=== PATIENT | male | born 1995 | race Caucasian/White ===

== ENCOUNTER 2022-07-05 13:55 | Emergency (ER) | payer SELFPAY ==
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
[2022-07-05] MEDS ORDERED: SILVER SULFADIAZINE 1% 50 GM TOP ONE (14:48)
[2022-07-05 15:27] VITALS: BP 133/77; TEMP 98.1; O2SAT 100
== END 2022-07-05 14:57 | disposition home or self-care (01) ==
LOC: ER 13:55
DX: T25.211A Burn of second degree of right ankle, initial encounter (principal); X08.8XXA Exposure to other specified smoke, fire and flames, initial encounter; Y93.89 Activity, other specified; Y92.9 Unspecified place or not applicable; F17.210 Nicotine dependence, cigarettes, uncomplicated
CPT/HCPCS: 99284

== ENCOUNTER 2022-10-08 07:10 | Emergency (ER) | payer OTHER, SELFPAY ==
[2022-10-08] MEDS ORDERED: IBUPROFEN 400 MG TAB ONE (09:20)
--- NOTE | 2022-10-08 09:41 | ER ---
Nurse's Notes [facility] Name: Ramesh Valdez Age: 27 yrs Sex: Male : 1995 Arrival Date: 10/08/2022 Time: 07:15 Bed 12 Private MD: Diagnosis: Impacted cerumen, right ear;Acute serous otitis media, right ear Presentation: 10/08 07:21 Chief complaint: Patient states: R ear pain that began 2 days ago. Denies fever. Pt ss reports that it hurts more when putting an ear plug in. Coronavirus screen: Client denies travel out of the [place] in the last 14 days. Ebola Screen: Patient denies exposure to infectious person. Patient denies travel to an Ebola-affected area in the 21 days before illness onset. Initial Sepsis Screen: Does the patient meet any 2 criteria? No. Patient's initial sepsis screen is negative. Does the patient have a suspected source of infection? No. Patient's initial sepsis screen is negative. Risk Assessment: Do you want to hurt yourself or someone else? Patient reports no desire to harm self or others. Onset of symptoms was October 06, 2022. 07:21 Method Of Arrival: Ambulatory ss 07:21 Acuity: BLAIR 5 ss Historical: - Allergies: 07:23 No Known Allergies; ss - Home Meds: 07:23 None [Active]; ss - PMHx: 07:23 None; ss - PSHx: 07:23 None; ss - Immunization history:: Client reports having NOT received the Covid vaccine. - Social history:: Smoking status: Patient reports the use of cigarette tobacco products, smokes one-half pack cigarettes per day. Screenin:26 [facility] ED Fall Risk Assessment (Adult) History of falling in the last 3 months, ss including since admission. Abuse screen: Denies threats or abuse. Denies injuries from another. Nutritional screening: No deficits noted. Tuberculosis screening: Never had TB. Assessment: 07:26 General: Appears in no apparent distress. comfortable, Behavior is calm, cooperative, ss Denies fever, feeling ill, fatigue, chills. Pain: Complains of pain in right ear Pain currently is 3 out of 10 on a pain scale. Quality of pain is described as tender, Is continuous. Neuro: Level of Consciousness is awake, alert, obeys commands, Oriented to person, place, time, situation. Respiratory: Airway is patent Respiratory effort is even, unlabored, Respiratory pattern is regular, symmetrical. Derm: Skin is intact, is healthy with good turgor, Skin is pink, warm \T\ dry. normal. Musculoskeletal: Range of motion: intact in all extremities. 08:30 Reassessment: Irrigated R ear with warm water and hydrogen peroxide. Small amount of ss flecks of wax noted on towel. Pt tolerated well. Awaiting for Dr. Henderson to reassess patient. Vital Signs: 07:21 BP 126 / 79; Pulse 97; Resp 15; Temp 98.2(TE); Pulse Ox 99% on R/A; Weight 99.79 kg; ss Height 6 ft. 0 in. (182.88 cm); Pain 3/10; 07:21 Body Mass Index 29.84 (99.79 kg, 182.88 cm) ED Course: 07:15 Patient arrived in ED. rg4 07:23 Triage completed. 07:23 Salinas Henderson MD is Attending Physician. [facility] 07:23 Arm band placed on right wrist. 07:26 Patient has correct armband on for positive identification. 07:46 Laila Basilio, MADAY is Primary Nurse. 09:37 Sammie Baker MD is Referral Physician. [facility] 09:52 No provider procedures requiring assistance completed. Patient did not have IV access ss during this emergency room visit. Administered Medications: 09:18 Drug: Motrin (ibuprofen) 800 mg Route: PO; 09:47 Follow up: Response: No adverse reaction 09:43 Drug: Augmentin (Amoxicillin-Clavulanate) 875 mg Route: PO; 16:20 Follow up: Response: Medication administered at discharge. 09:47 Drug: Rocephin (cefTRIAXone) 1 grams Route: IM; Site: left gluteus; 10:00 Follow up: Response: No adverse reaction; Medication administered at discharge. Medication: 07:26 VIS not applicable for this client. Outcome: 09:40 Discharge ordered by . yecenia 09:52 Discharged to home ambulatory. 09:52 Condition: good 09:52 Discharge instructions given to patient, Instructed on discharge instructions, follow up and referral plans. medication usage, Demonstrated understanding of instructions, follow-up care, medications, Prescriptions given X 3. 10:09 Patient left the ED. ss Signatures: Salinas Henderson MD MD cha Smirch, Shelby, RN RN Xenia Delgado rg4
--- NOTE | 2022-10-08 09:41 | EDPHYS ---
Physician Documentation [facility] Name: Ramesh Valdez Age: 27 yrs Sex: Male : 1995 Arrival Date: 10/08/2022 Time: 07:15 Bed 12 Private MD: Salinas Díaz HPI: 10/08 08:11 This 27 yrs old Male presents to ER via Ambulatory with complaints of Ear yecenia Pain. 08:11 The patient presents with pain, tenderness. The complaints affect the right ear. Onset: yecenia The symptoms/episode began/occurred 2 day(s) ago. Modifying factors: The symptoms are alleviated by nothing, the symptoms are aggravated by nothing. Associated signs and symptoms: The patient has no apparent associated signs or symptoms. The patient has not experienced similar symptoms in the past. Historical: - Allergies: 07:23 No Known Allergies; ss - Home Meds: 07:23 None [Active]; ss - PMHx: 07:23 None; ss - PSHx: 07:23 None; ss - Immunization history:: Client reports having NOT received the Covid vaccine. - Social history:: Smoking status: Patient reports the use of cigarette tobacco products, smokes one-half pack cigarettes per day. ROS: 08:11 Constitutional: Negative for fever, chills, and weight loss, Eyes: Negative for injury, yecenia pain, redness, and discharge, Neck: Negative for injury, pain, and swelling, Cardiovascular: Negative for chest pain, palpitations, and edema, Respiratory: Negative for shortness of breath, cough, wheezing, and pleuritic chest pain, Abdomen/GI: Negative for abdominal pain, nausea, vomiting, diarrhea, and constipation, Back: Negative for injury and pain, : Negative for injury, bleeding, discharge, and swelling, MS/Extremity: Negative for injury and deformity, Skin: Negative for injury, rash, and discoloration, Neuro: Negative for headache, weakness, numbness, tingling, and seizure, Psych: Negative for depression, anxiety, suicide ideation, homicidal ideation, and hallucinations, Allergy/Immunology: Negative for hives, rash, and allergies, Endocrine: Negative for neck swelling, polydipsia, polyuria, polyphagia, and marked weight changes, Hematologic/Lymphatic: Negative for swollen nodes, abnormal bleeding, and unusual bruising. 08:11 ENT: Positive for ear pain. Exam: 08:11 Constitutional: This is a well developed, well nourished patient who is awake, alert, yecenia and in no acute distress. Head/Face: Normocephalic, atraumatic. Eyes: Pupils equal round and reactive to light, extra-ocular motions intact. Lids and lashes normal. Conjunctiva and sclera are non-icteric and not injected. Cornea within normal limits. Periorbital areas with no swelling, redness, or edema. Neck: Trachea midline, no thyromegaly or masses palpated, and no cervical lymphadenopathy. Supple, full range of motion without nuchal rigidity, or vertebral point tenderness. No Meningismus. Chest/axilla: Normal chest wall appearance and motion. Nontender with no deformity. No lesions are appreciated. Cardiovascular: Regular rate and rhythm with a normal S1 and S2. No gallops, murmurs, or rubs. Normal PMI, no JVD. No pulse deficits. Respiratory: Lungs have equal breath sounds bilaterally, clear to auscultation and percussion. No rales, rhonchi or wheezes noted. No increased work of breathing, no retractions or nasal flaring. Abdomen/GI: Soft, non-tender, with normal bowel sounds. No distension or tympany. No guarding or rebound. No evidence of tenderness throughout. Back: No spinal tenderness. No costovertebral tenderness. Full range of motion. Male : Normal genitalia with no discharge or lesions. Skin: Warm, dry with normal turgor. Normal color with no rashes, no lesions, and no evidence of cellulitis. MS/ Extremity: Pulses equal, no cyanosis. Neurovascular intact. Full, normal range of motion. Neuro: Awake and alert, GCS 15, oriented to person, place, time, and situation. Cranial nerves II-XII grossly intact. Motor strength 5/5 in all extremities. Sensory grossly intact. Cerebellar exam normal. Normal gait. Psych: Awake, alert, with orientation to person, place and time. Behavior, mood, and affect are within normal limits. 08:11 ENT: TM's: not visable, because of cerumen. Vital Signs: 07:21 BP 126 / 79; Pulse 97; Resp 15; Temp 98.2(TE); Pulse Ox 99% on R/A; Weight 99.79 kg; ss Height 6 ft. 0 in. (182.88 cm); Pain 3/10; 07:21 Body Mass Index 29.84 (99.79 kg, 182.88 cm) Procedures: 09:42 Performed right irrigation x 3, all wax removed. [facility] MDM: 07:23 Patient medically screened. [facility] 08:11 Differential diagnosis: otitis media, otitis externa, ruptured TM, foreign body, yecenia cerumen impaction, barotrauma . Data reviewed: vital signs, nurses notes. Consideration of Admission/Observation Escalation of care including admission/observation considered. I considered the following discharge prescriptions or medication management in the emergency department Medications were administered in the Emergency Department. See MAR. Care significantly affected by the following chronic conditions: none. 09:43 Test considered but Not performed: Labs: no cbc, comp met. [facility] 10/08 07:59 Order name: Misc. Order: h2o2/water; Complete Time: 08:16 yecenia Administered Medications: 09:18 Drug: Motrin (ibuprofen) 800 mg Route: PO; ss 09:47 Follow up: Response: No adverse reaction 09:43 Drug: Augmentin (Amoxicillin-Clavulanate) 875 mg Route: PO; ss 16:20 Follow up: Response: Medication administered at discharge. 09:47 Drug: Rocephin (cefTRIAXone) 1 grams Route: IM; Site: left gluteus; ss 10:00 Follow up: Response: No adverse reaction; Medication administered at discharge. Disposition Summary: 10/08/22 09:40 Discharge Ordered Location: Home yecenia Problem: new yecenia Symptoms: have improved yecenia Condition: Stable yecenia Diagnosis - Impacted cerumen, right ear yecenia - Acute serous otitis media, right ear yecenia Followup: yecenia - With: Private Physician - When: 2 - 3 days - Reason: Recheck today's complaints, Re-evaluation by your physician Followup: yecenia - With: - When: 2 - 3 days - Reason: Recheck today's complaints, Re-evaluation by your physician Discharge Instructions: - Discharge Summary Sheet yecenia - Earwax Buildup, Adult yecenia - Ear Drops, Adult yecenia - Ear Drops, Adult, [id number] yecenia - Otitis Media, Adult yecenia - Otitis Media, Adult, [id number] yecenia - Ear Irrigation yecenia Forms: - Medication Reconciliation Form yecenia - Thank You Letter yecenia - Antibiotic Education yecenia - Prescription Opioid Use yecenia - Work release form ss Prescriptions: - Tylenol-Codeine #3 300 mg-30 mg Oral - take 2 tablet by ORAL route every 6 hours; 15 tablet; Refills: 0, Product [facility] Selection Permitted - Augmentin 875-125 mg Oral Tablet - take 1 tablet by ORAL route every 12 hours for 10 days; 20 tablet; Refills: 0, [facility] Product Selection Permitted - Ciprodex 0.3-0.1 % Otic Drops, Suspension - instill 4 drops by OTIC route every 12 hours for 7 days , for ears ONLY; 1 yecenia Container; Refills: 0, Product Selection Permitted Signatures: Salinas Henderson MD MD cha Smirch, Shelby RN RN ss
[2022-10-08] MEDS ORDERED: AMOX/K CLAV 875 MG TAB ONE (09:43)
[2022-10-08] MEDS ORDERED: CEFTRIAXONE 1000 MG/VIAL ONE (09:44)
[2022-10-08] MEDS ORDERED: WATER FOR INJ,STERILE 10 ML ONE (09:44)
[2022-10-08 10:15] VITALS: BP 126/79; TEMP 98.2; O2SAT 99
== END 2022-10-08 10:09 | disposition home or self-care (01) ==
LOC: ER 07:10
PROC: 3E1B78Z Irrigation of Ear using Irrigating Substance, Via Natural or Artificial Opening (ICD-10-PCS; principal; 2022-10-08)
DX: H65.01 Acute serous otitis media, right ear (principal); H61.21 Impacted cerumen, right ear; F17.210 Nicotine dependence, cigarettes, uncomplicated
CPT/HCPCS: 96372; 99283

== ENCOUNTER 2022-12-22 20:29 | Emergency (ER) | payer OTHER ==
--- OUTSIDE RECORDS SUMMARY | 2022-12-22 20:31 | XMS REPORT | Continuity of Care Document ---
:1995 Author Organization [facility] t Address [address] [place] [address] [place] [address] Care Team Providers Name Role Phone PCP, PATIENT DOES NOT HAVE A Primary Care Physician BINU Ely Attending Clinician Unavailable Binu Rodgers DO Attending Clinician Payers Payer Name Policy Type Policy Number Effective Date Expiration Date Darius NOEL INDEMNITY [id number] 2020 00:00:00 Problems This patient has no known problems. Allergies, Adverse Reactions, Alerts Allergy Allergy Status Severity Reaction(s) Onset Inactive Treating Comm ents Source Name Type Date Date Clinician NO KNOWN Drug Active Univers ALLERGIE Class it[facility] of [facility] Medical Branch Social History Social Habit Start Date Stop Date Quantity Comments Source Exposure to 2022-11-28 2022-12-08 Not sure [facility] SARS-CoV-2 (event) 00:00:00 20:30:00 Medica l Branch Sex Assigned At [birth year] [facility] 00:00:00 00:00:00 Medical Branch Smoking Status Start Date Stop Date Source Tobacco smoking consumption [facility] Medical unknown Branch Medications Ordered Filled Start Stop Current Ordering Indication Dosage Frequency Signature Comments Components Source Medication Medication Date Date Medication? Clinician (SIG) Name Name naproxen Yes [id number] 550mg Take 1 Un thaddeus sodium 4-13 tablet by ity of (ANAPROX 00:00: mouth in [place] DS) 550 mg 00 the Medical tablet morning Branch and 1 tablet in the evening. Take with meals. Vital Signs Vital Name Observation Time Observation Value Comments Source Diastolic blood 2022-12-09 01:26:00 98 mm[Hg] Unive rsity of pressure [facility] Heart rate 2022-12-09 01:26:00 79 /min [facility] Body temperature 2022-12-09 01:26:00 37 [facility] 2022-12-09 01:26:00 16 /min [facility] Body height 2022-12-09 01:26:[address] [facility] Body weight 2022-12-09 01:26:[address] [facility] BMI 2022-12-09 01:26:00 29.84 kg/m2 [facility] Oxygen saturation in 2022-12-09 01:26:00 100 /min [facility] Arterial blood by [facility] Pulse oximetry Branch Systolic blood 2022-12-09 01:26:00 139 mm[Hg] Univer sity of pressure [facility] Procedures Procedure Date / Time Performed Performing Clinician [facility] e CONSENT/REFUSAL FOR 2022-12-09 01:18:46 Doctor Unassigned, No Un [facility] DIAGNOSIS AND Name [facility] [place] TREATMENT NOTICE OF PRIVACY 2022-12-09 01:18:26 Doctor [facility]assigned, No [facility] Branch Encounters Start End Encounter Admission Attending Care Care Encounter Source Date/Time Date/Time Type Type Clinicians Facility Department ID 2022-12-08 2022-12-08 Emergency X SINGER GASHARLENE ERT [id number] Univers 20:35:00 21:07:[address] [facility] 2022-12-08 2022-12-08 Emergency Singer GASHARLENE [id number] Univers 20:35:00 21:07:00 Binu PETTIT [id number] i ty of [place] [id number] [facility] [id number] [facility] 084 Branch Results This patient has no known results.
[2022-12-22] MEDS ORDERED: IBUPROFEN 400 MG TAB ONE (22:11)
--- NOTE | 2022-12-22 22:49 | RAD REPORT ---
EXAM DESCRIPTION: COLLIN - SARINA - 12/22/2022 10:14 pm CLINICAL HISTORY: PAIN COMPARISON: No comparisons TECHNIQUE: Left hand, 3 views. FINDINGS: No fracture is identified. There is no dislocation or periosteal reaction noted. Joint alignment is maintained. No foreign body or other soft tissue abnormality. IMPRESSION: Negative left hand examination.
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
[2022-12-23 00:57] VITALS: BP 137/84; TEMP 98.9; O2SAT 100
== END 2022-12-22 23:13 | disposition home or self-care (01) ==
LOC: ER 20:29
DX: M79.642 Pain in left hand (principal)

== ENCOUNTER → 2023-11-05 | Emergency (ER) | payer OTHER, SELFPAY ==
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
--- NOTE | 2023-11-05 15:23 | EDPHYS ---
Physician Documentation [facility] Name: Ramesh Valdez Age: 28 yrs Sex: Male : 1995 Arrival Date: 11/05/2023 Time: 15:05 Bed Waiting Private MD: ED Physician Salinas Henderson HPI: 11/04 15:27 This 28 yrs old Male presents to ER via Ambulatory with complaints of Staple Removal. [facility] 15:27 The patient has kelsi on the scalp. Previous treatment: The patient was initially [facility] treated 9 day(s) ago, the care was rendered at another emergency department, [facility], Treatment type: The patient's original treatment included kelsi. Sutures/kelsi progress: The patient has no c/o's. The wound is well-healing with no redness, swelling, discharge, or dehiscence reported. Historical: - Allergies: 15:27 No Known Allergies; as6 - Home Meds: 15:27 None [Active]; as6 - PMHx: 15:27 None; as6 - PSHx: 15:27 None; as6 - Immunization history:: Last tetanus immunization: up to date. - Social history:: Smoking status: Patient reports the use of cigarette tobacco products, smokes one pack cigarettes per day. ROS: 15:27 Constitutional: Negative for fever, chills, and weight loss, Eyes: Negative for injury, jh7 pain, redness, and discharge, Neck: Negative for injury, pain, and swelling, Cardiovascular: Negative for chest pain, palpitations, and edema, Respiratory: Negative for shortness of breath, cough, wheezing, and pleuritic chest pain, Abdomen/GI: Negative for abdominal pain, nausea, vomiting, diarrhea, and constipation, MS/Extremity: Negative for injury and deformity, Neuro: Negative for headache, weakness, numbness, tingling, and seizure, 15:27 Skin: Positive for laceration(s), of the scalp, kelsi in place, 15:27 All other systems are negative, Exam: 15:27 Constitutional: This is a well developed, well nourished patient who is awake, alert, jh7 and in no acute distress. Neck: Trachea midline, no thyromegaly or masses palpated, and no cervical lymphadenopathy. Supple, full range of motion without nuchal rigidity, or vertebral point tenderness. No Meningismus. Cardiovascular: Regular rate and rhythm with a normal S1 and S2. No gallops, murmurs, or rubs. Normal PMI, no JVD. No pulse deficits. Respiratory: Lungs have equal breath sounds bilaterally, clear to auscultation and percussion. No rales, rhonchi or wheezes noted. No increased work of breathing, no retractions or nasal flaring. Back: No spinal tenderness. No costovertebral tenderness. Full range of motion. MS/ Extremity: Pulses equal, no cyanosis. Neurovascular intact. Full, normal range of motion. Neuro: Awake and alert, GCS 15, oriented to person, place, time, and situation. Normal gait. 15:27 Skin: Wound recheck: Staple laceration closure: the wound is healing well, the edges are well approximated, no evidence of dehiscence, no drainage, no erythema, no swelling, Vital Signs: 15:26 BP 136 / 89; Pulse 70; Resp 18 S; Temp 97.3(TE); Pulse Ox 100% on R/A; Weight 104.33 kg as6 (R); Height 6 ft. 0 in. (R); Pain 0/10; 15:26 Body Mass Index 31.19 (104.33 kg, 182.88 cm) as6 15:26 Pain Scale: Adult as6 Procedures: 15:27 Suture/Staple removal: Removed 15 kelsi, from scalp, site appears well healed, [facility] Patient tolerated well. MDM: 15:12 Patient medically screened. [facility] 15:30 Data reviewed: vital signs, nurses notes. Counseling: I had a detailed discussion with [facility] the patient and/or guardian regarding the historical points, exam findings, and any diagnostic results supporting the discharge/admit diagnosis, to return to the emergency department if symptoms worsen or persist or if there are any questions or concerns that arise at home. Administered Medications: No medications were administered Disposition Summary: 11/05/23 15:21 Discharge Ordered Notes: Location: Home [facility] Problem: new [facility] Symptoms: are resolved [facility] Condition: Stable [facility] Diagnosis - Staple removal [facility] Followup: [facility] - With: Private Physician - When: As needed - Reason: Discharge Instructions: - Discharge Summary Sheet [facility] - Sutures, Kelsi, or Adhesive Wound Closure jh7 - Suture Removal, Care After jh7 Forms: - Work release form as6 - Medication Reconciliation Form jh7 - Thank You Letter jh7 - Patient Portal Instructions jh7 - Leadership Thank You Letter jh7 Signatures: Bradley Acosta RN RN as6 Anabel Rodriguez, FACILITY SPECIALIST FACILITY SPECIALIST 7
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
[2023-11-05 15:52] VITALS: BP 136/89; TEMP 97.3; O2SAT 100
== END ==
LOC: ER 15:05
DX: Z48.02 Encounter for removal of sutures (principal)
CPT/HCPCS: 99283

== ENCOUNTER 2024-08-01 00:54 | Emergency (ER) | payer OTHER, SELFPAY ==
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
[2024-08-01] MEDS ORDERED: SMZ./TMP. 800/160 MG TABLET ONE (02:17)
[2024-08-01] MEDS ORDERED: CEPHALEXIN 250 MG CAP ONE (02:17)
[2024-08-01] MEDS ORDERED: IBUPROFEN 400 MG TAB ONE (02:17)
[2024-08-01 10:06] VITALS: BP 131/86; TEMP 98.2; O2SAT 100
== END 2024-08-01 02:26 | disposition home or self-care (01) ==
LOC: ER 00:54
DX: S81.832A Puncture wound without foreign body, left lower leg, initial encounter (principal)
CPT/HCPCS: 99284

== ENCOUNTER 2024-08-21 18:47 | Emergency (ER) | payer SELFPAY ==
--- OUTSIDE RECORDS SUMMARY | 2024-08-21 18:50 | XMS REPORT | Continuity of Care Document ---
Author Name Unknown Address [address] [facility] [address] [place] [address] [facility] thconnect Address [address] [facility] [address] [place] [address] Care Team Providers Care Watch Train Inspector Name Role Phone Pcp, Pcp Primary Care Physician UnavailNo Anthony MD Attending Clinician [phone] NO ZEPEDA Attending Clinician UnavailAmaury Tucker Attending Clinician Unavailable Doctor Unassigned, [place] Attending Clinician U HANDY Turner Attending Clinician Unavailable Handy Rodgers DO Attending Clinician [phone] Referred, Self Admitting Clinician Unavailable Payers Payer Name Policy Type Policy Number Effective Date Expirati on Date Source Allergies, Adverse Reactions, Alerts Allergy Name Allergy Type Status Severity Reaction(s) Onset Date Inactive Date Treating Clinician Comments Source No Known Allergie s DA Active U 10-26 00:00: 00 [facility] NO KNOWN ALLERGIE S Drug Class Active [facility] Social History Social Habit Start Date Stop Date Quantity Comments Source Gender identity Ruddy martita Steiner Sexual orientation [facility] Exposure to SARS-CoV-2 (event) 2022-11-28 00:00:00 2022-12-08 20:30:00 Not sure [facility] Sex Assigned At 1995 00:00:00 1995 00:00:00 [facility] Smoking Status Start Date Stop Date Source Tobacco smoking consumption unknown [facility] [place] [facility] Medications Ordered Medication Name Filled Medication Name Start Date Stop Date Current Medication? Ordering Clinician Indication Dosage Frequency Signature (SIG) Comments Components Source acetaminoph en (Tylenol) tablet 325 mg acetaminoph en (Tylenol) tablet 325 mg 2023-08 05:45: 00 07-28 06:06 :00 No 325mg 325 mg, Oral, Once, On 07/28/24 at 0545, For 1 dose, Max acetaminop hen = 4000mg/day (4gm/day) Kimber Saini [facility] HYDROcodone -acetaminop hen ([place]) 5-325 MG per tablet 1 tablet HYDROcodone -acetaminop hen ([place]) 5-325 MG per tablet 1 tablet 2023-08 05:45: 00 07-28 06:06 :00 No 1{tbl} 1 tablet, Oral, Once, On 07/28/24 at 0545, For 1 dose Kimber Saini [facility] ketorolac (Toradol) injection 15 mg ketorolac (Toradol) injection 15 mg 2023-08 05:45: 00 07-28 06:06 :00 No 15mg 15 mg, Intravenou s, Once, On 07/28/24 at 0545, For 1 dose, Administer IVP. Kimber Saini [facility] fentaNYL (Sublimaze) injection 50 mcg fentaNYL (Sublimaze) injection 50 mcg 2023-08 02:45: 00 07-28 02:45 :00 No 50ug 50 mcg, Intravenou s, Once, On 07/28/24 at 0245, For 1 dose, If ordered IV, slowly push over 3-5 minutes. Kimber Saini [facility] methocarbam ol (Robaxin) tablet 500 mg methocarbam ol (Robaxin) tablet 500 mg 2023-08 02:35: 00 07-28 03:48 :00 No 500mg 500 mg, Oral, Once, On 07/28/24 at 0235, For 1 dose Kimber Saini [facility] acetaminoph en (Tylenol) tablet 1,000 mg acetaminoph [...] 550 mg tablet 12-08 00:00: 00 Yes [id number] 550mg Take 1 tablet by mouth in the morning and 1 tablet in the evening. Take with meals. [facility] Vital Signs Vital Name Observation Time Observation Value Comments Darius ho Systolic blood pressure 2024-07-28 06:00:00 129 mm[Hg] [facility] Diastolic blood pressure 2024-07-28 06:00:00 67 mm[Hg] [facility] Heart rate 2024-07-28 06:00:00 73 /min Palak daley [place] [facility] Respiratory rate 2024-07-28 06:00:00 20 /min [facility] Oxygen saturation in Arterial blood by Pulse oximetry 2024-07-28 06:00:00 98 /min Nigel [facility] Body weight 2024-07-28 02:38:00 108.863 kg Ruddy martita [facility] BMI 2024-07-28 02:38:00 32.55 kg/m2 Ruddy [facility] Body temperature 2024-07-28 02:38:00 36.94 Tracy Nigel Saini [facility] Body height 2024-07-28 02:38:00 182.9 cm Ruddy martita [place] [facility] Systolic blood pressure 2024-07-28 06:00:00 129 mm[Hg] [facility] Diastolic blood pressure 2024-07-28 06:00:00 67 mm[Hg] [facility] Heart rate 2024-07-28 06:00:00 73 /[facility] [place] [facility] Respiratory rate 2024-07-28 06:00:00 20 /min [facility] [place] [facility] Oxygen saturation in Arterial blood by Pulse oximetry 2024-07-28 06:00:00 98 /min Nig[facility] Body weight 2024-07-28 02:38:00 108.863 kg Ruddy martita [facility] BMI 2024-07-28 02:38:00 32.55 kg/m2 Ruddy anders [facility] Body temperature 2024-07-28 02:38:00 36.94 [facility] 2024-07-28 02:38:00 182.9 cm Ruddyzack mendozal [place] [facility] Systolic blood pressure 2022-12-09 01:26:00 139 mm[Hg] [facility] Diastolic blood pressure 2022-12-09 01:26:00 98 mm[Hg] [facility] Heart rate 2022-12-09 01:26:00 79 /min [facility] Body temperature 2022-12-09 01:26:00 37 Tracy [facility] Respiratory rate 2022-12-09 01:26:00 16 /min [facility] Body height 2022-12-09 01:26:00 182.9 cm [facility] Body weight 2022-12-09 01:26:00 99.791 kg [facility] BMI 2022-12-09 01:26:00 29.84 kg/m2 [facility] Oxygen saturation in Arterial blood by Pulse oximetry 2022-12-09 01:26:00 100 /min [facility] Procedures Procedure Date / Time Performed Performing Clinician Source AUTHORIZATION FOR RELEASE OF PHI 2023-02-06 05:01:00 Doctor Unassigned, [place] [facility] CONSENT/REFUSAL FOR DIAGNOSIS AND TREATMENT 2022-12-09 01:18:46 Doctor Unassigned, [place] [facility] NOTICE OF PRIVACY PRACTICES 2022-12-09 01:18:26 Doctor Unassigned, [place] [facility] XR knee 3 views left Kimber silveira [place] [facility] XR tibia fibula 2 views left [facility] Epic XR ankle 3+ views left Memaylin daley [place] [facility] Encounters Start Date/Time End Date/Time Encounter Type Admission Type Attending Clinicians Care Facility Care Department Encounter ID Source 2024-07-28 02:28:00 2024-07-28 06:15:00 Emergency No Zepeda [facility] [id number]..[id number] Kimber silveira [facility] 2024-07-28 02:28:00 2024-07-28 06:15:00 Emergency Trauma Center NO ZEPEDA [facility] General Medicine [id number] [facility] 2023-10-27 14:20:00 2023-10-27 18:02:00 Emergency [id number] are [facility] 2023-02-06 00:00:00 2023-02-06 00:00:00 Orders Only Doctor Unassigned, [place] [facility] [id number]..[id number] [facility] 2022-12-08 20:35:00 2022-12-08 21:07:00 Emergency X HANDY RODGERS [facility] ERT [id number] [facility] 2022-12-08 20:35:00 2022-12-08 21:07:00 Emergency Handy Rodgers [facility] [id number] [facility] Consult Notes Date/Time Note Provider Source 2024-07-28 05:50:30 Associated Order(s): IP CONSULT TO SOCIAL WORK called BOOKER regarding PT. reports PT has been medically cleared and is ready to be discharged home but does not have a ride. BOOKER met with PT and confirmed his address. BOOKER will schedule lyft to transport PT home. [facility] Hand Driller [facility]
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
--- NOTE | 2024-08-21 19:27 | EDPHYS ---
Physician Documentation [facility] Name: Ramesh Valdez Age: 29 yrs Sex: Male : 1995 Arrival Date: 08/21/2024 Time: 18:47 Bed 14 Private MD: None, None ED Physician Freddie Aguilera HPI: 08/21 19:28 This 29 yrs old Male presents to ER via Ambulatory with complaints of Wound ec2 Check. 19:28 Patient arrives today for evaluation of wound to the front of his left distal tibia. ec2 Some drainage. No fevers or chills, some redness as well.. Historical: - Allergies: 19:19 No Known Allergies; cm10 - Home Meds: 19:19 None [Active]; cm10 - PMHx: 19:19 None; cm10 - PSHx: 19:19 None; cm10 - Immunization history:: Adult Immunizations up to date. - Infectious Disease History:: Denies. - Social history:: Smoking status: Patient reports the use of cigarette tobacco products, smokes one pack cigarettes per day. ROS: 19:28 Constitutional: as per hpi ec2 Exam: 19:28 Constitutional: GEN: NAD Head: atraumatic Eyes: EOMI Ears: External ears are ec2 normal. CV: regular rate LUNGS: no respiratory distress ABD: non-distended SKIN: Small approximately 2 x 2 cm wound with scant drainage and surrounding erythema, no significant pain. MSK: no evidence of trauma Vital Signs: 19:18 BP 131 / 95; Pulse 70; Resp 15; Temp 98.4; Pulse Ox 99% ; Weight 2.72 kg; Height 2 ft. cm10 40 in. ; Pain 5/10; 19:52 BP 134 / 87; Pulse 74; Resp 16; Temp 98.3; Pulse Ox 99% on R/A; dd2 19:18 Body Mass Index 1.03 (2.72 kg, 162.56 cm) cm10 19:18 Pain Scale: Adult cm10 Jasvir Coma Score: 19:52 Eye Response: spontaneous(4). Motor Response: obeys commands(6). Verbal Response: dd2 oriented(5). Total: 15. MDM: 19:27 Medical Screening Exam initiated ec2 19:28 Data reviewed: vital signs, nurses notes. ED course: Patient arrives today for ec2 evaluation of a wound to the left distal tibia. Examination yields skin findings as above. Will start patient on clindamycin for cellulitis. Will discharge home. Return precautions given. Additionally considered other processes such as abscess, osteomyelitis. Patient otherwise systemically well-appearing no acute distress, will forego obtaining lab work such as CBC or BMP.. 08/21 19:27 Order name: Wound Care; Complete Time: 19:52 ec2 Administered Medications: 19:52 Drug: Clindamycin PO 450 mg PO once Route: PO; dd2 19:52 Follow up: Response: Medication administered at discharge. dd2 Disposition Summary: 08/21/24 19:27 Discharge Ordered Notes: Location: Home ec2 Condition: Stable ec2 Diagnosis - Cellulitis of left lower limb ec2 Followup: ec2 - With: Private Physician - When: - Reason: Recheck today's complaints Discharge Instructions: - Discharge Summary Sheet ec2 - Cellulitis, Adult ec2 Forms: - Medication Reconciliation Form ec2 - Antibiotic Education ec2 - Prescription Opioid Use ec2 - Patient Portal Instructions ec2 - Leadership Thank You Letter ec2 Prescriptions: - Clindamycin HCl 150 mg Oral capsule - take 3 capsule ORAL route every 8 hours for 7 days; 63 capsule; Refills: 0, ec2 Product Selection Permitted Signatures: Leatha Valle, RN RN cm10 Freddie Aguilera MD MD ec2 CHAR JOHNSTON RN RN dd2
[2024-08-21 20:05] VITALS: O2SAT 99
[2024-08-21 20:06] VITALS: BP 134/87; TEMP 98.3
== END 2024-08-21 19:56 | disposition home or self-care (01) ==
LOC: ER 18:47
DX: L03.116 Cellulitis of left lower limb (principal); F17.210 Nicotine dependence, cigarettes, uncomplicated; Z48.00 Encounter for change or removal of nonsurgical wound dressing
CPT/HCPCS: 99284